=== PATIENT | female | born 1960 | race Caucasian/White ===

== ENCOUNTER 2021-12-11 05:48 | Day surgery (SDC) | payer BC ==
[~2021-12-11 05:48] MED LIST: Lactated Ringers 1,000 ML IV SCH; Lidocaine 1%/Sod Bicarbonate in NS 8.4% 1 ML Syringe IDERM PRN; Sodium Chloride 0.9% 10 ML Syringe FLUSH PRN; Sodium Chloride 0.9% 10 ML Syringe FLUSH SCH
[2021-12-11] MEDS ORDERED: Vancomycin 1 GM SDV ONE (05:59)
[2021-12-11] MEDS ORDERED: Pregabalin 25 MG Cap PO SCH (06:00)
[2021-12-11] MEDS ORDERED: Morphine 8 MG, EPINEPHrine 0.3 MG, Cefuroxime 750 MG, Ketorolac 30 MG, Sodium Chloride ... PRN ×5 (06:00)
[2021-12-11] MEDS ORDERED: oxyCODONE ER 10 MG TAB.ER PO SCH (06:00)
[2021-12-11] MEDS ORDERED: Acetaminophen 325 MG Tab PO SCH (06:00)
[2021-12-11] MEDS ORDERED: HYDROmorphone 0.5 MG/0.5 ML Syringe IVPUSH PRN (06:54)
[2021-12-11] MEDS ORDERED: Ondansetron 4 MG/2 ML SDV IVPUSH PRN (06:54)
[2021-12-11] MEDS ORDERED: fentaNYL 100 MCG/2 ML SDV IVPUSH PRN (06:54)
[2021-12-11] MEDS ORDERED: fentaNYL 100 MCG/2 ML SDV ONE (06:59)
[2021-12-11] MEDS ORDERED: Midazolam 1 MG/ML 2 ML SDV ONE (06:59)
[2021-12-11] MEDS ORDERED: Propofol 200 MG/20 ML SDV ONE ×2 (07:22→07:33)
[2021-12-11] MEDS ORDERED: Lidocaine 1% 5 ML VIAL ONE (07:25)
[2021-12-11] MEDS ORDERED: ceFAZolin 2 GM Vial ONE (07:37)
[2021-12-11] MEDS ORDERED: Lidocaine 1% 4 ML ONE (07:52)
[2021-12-11] MEDS ORDERED: Phenylephrine HCl In 0.9% NaCl 1 MG/10 ML Vial ONE (07:54)
[2021-12-11] MEDS ORDERED: Ondansetron 4 MG Tab.DIS PO PRN (08:00)
[2021-12-11] MEDS ORDERED: Ondansetron 4 MG/2 ML SDV ONE (08:25)
[2021-12-11] MEDS ORDERED: oxyCODONE 5 MG Tab PO PRN (09:00)
[2021-12-11] MEDS ORDERED: Cyclobenzaprine 10 MG Tab PO PRN (09:00)
[2021-12-11] MEDS ORDERED: EPINEPHrine 1 MG/ML SDV ONE (10:17)
[2021-12-11] MEDS ORDERED: Ropivacaine 0.5% 5 MG/ML 30 ML SDV ONE (10:17)
== END 2021-12-11 12:44 | disposition home or self-care (01) ==
LOC: JD.SDS 05:48
PROVIDERS: ATTEND Orthopaedic Surgery
DX: M17.12 Unilateral primary osteoarthritis, left knee (principal); E66.9 Obesity, unspecified; Z79.899 Other long term (current) drug therapy; Z88.5 Allergy status to narcotic agent; Z88.6 Allergy status to analgesic agent; Z88.8 Allergy status to other drugs, medicaments and biological substances; Z98.890 Other specified postprocedural states; Z68.36 Body mass index [BMI] 36.0-36.9, adult
CPT/HCPCS: 0055T; 27447; 73560; 97110; 97116; 97161; A9270; C1713; C1776; J0171; J0690; J0697; J1885; J2250; J2270; J2405; J2704; J2795; J3010; J3370; J7120; 01402; 64450; 76942